=== PATIENT | female | born 1990 | race Asian ===

== ENCOUNTER 2018-02-07 10:56 | Outpatient (RCR) | payer OTHER | END 2018-02-20 13:57 | disposition home or self-care (01) | LOC: WSPT 10:56 | DX: M25.562 Pain in left knee (principal); Z79.1 Long term (current) use of non-steroidal anti-inflammatories (NSAID); Z79.899 Other long term (current) drug therapy; Z72.0 Tobacco use; Z80.3 Family history of malignant neoplasm of breast; Z80.1 Family history of malignant neoplasm of trachea, bronchus and lung; Z82.49 Family history of ischemic heart disease and other diseases of the circulatory system; Z83.3 Family history of diabetes mellitus ==

== ENCOUNTER 2018-06-20 13:39 | Emergency (ER) | payer OTHER ==
[~2018-06-20] VITALS: Ht 177.8 cm; Wt 63.6 kg
[~2018-06-20 13:39] MED LIST: PREDNISONE20 MG PO
[2018-06-20 13:43] VITALS: BP 124/55; TEMP 99.5
[2018-06-20] MEDS ORDERED: ATARAX 25MG25 MG/TAB PO (17:07)
[2018-06-20] MEDS ORDERED: FLEXERIL 1010 MG/TAB PO (17:07)
[2018-06-20 17:24] VITALS: PULSE 70
== END 2018-06-20 17:26 | disposition home or self-care (01) ==
LOC: COL.ER 13:39
DX: M94.0 Chondrocostal junction syndrome [Tietze] (principal); N92.6 Irregular menstruation, unspecified; F41.9 Anxiety disorder, unspecified; M54.5 Low back pain; G89.29 Other chronic pain; F17.210 Nicotine dependence, cigarettes, uncomplicated
CPT/HCPCS: J1885

== ENCOUNTER 2019-10-15 11:24 | Inpatient (IN) | payer MEDICAID ==
[~2019-10-15] VITALS: Ht 177.8 cm; Wt 80.9 kg
[~2019-10-15 11:24] MED LIST changes: +ATARAX 25MG25 MG/TAB PO; +FLEXERIL 1010 MG/TAB PO
[2019-10-16] VITALS: BP 108/58; PULSE 71; TEMP 98.3
--- NOTE | 2019-10-16 19:00 | NUR ---
Ambulatory to unit for cytotech induction, accompanied by significant other. Oriented to room, monitor, plan of care. Questions invited and answered.
[2019-10-16 21:30] LABS: BASO % 0.3 % (0.0-2.0); EOS # 0.1 (0.0-0.7); EOS % 0.8 % (0-4.0); GRAN # 5.5 (1.4-6.5); GRAN % 72.7 % (42.2-75.2); HEMOGLOBIN 11.9 g/dl (12.5-16.0); LYMPH # 1.5 (1.2-3.4); LYMPH % 20.3 % (20.0-51.0); MEAN CELL VOLUME 87 fl (80.0-100.0); MEAN CORPUSCULAR HEMOGLOBIN 28 pg (27.0-31.0); MEAN CORPUSCULAR HGB CONC 32 g/dl (33.0-37.0); MONO # 0.4 (0.1-0.6); MONO % 5.5 % (1.7-9.3); PLATELET COUNT 170 K/mm3 (130-400); RED BLOOD COUNT 4.25 M/mm3 (4.10-5.30); REDCELL DISTRIBUTION WIDTH-CV 13.3 % (11.5-14.5)
[2019-10-16 21:54] LABS: TRICYCLIC ANTIDEPRESS URINE NEGATIVE
[2019-10-16 22:10] VITALS: BP 110/61; PULSE 79
--- NOTE | 2019-10-16 22:10 | NUR ---
IV bolus infused, IV to INT.
[2019-10-16 22:25] VITALS: BP 139/63; PULSE 81
[2019-10-16 22:45] VITALS: BP 121/65; PULSE 81
[2019-10-16 23:00] VITALS: BP 109/59; PULSE 76
--- NOTE | 2019-10-16 23:25 | NUR ---
Vistaril 50mg po.
[2019-10-16 23:57] VITALS: BP 118/69; PULSE 87; TEMP 98.2
[2019-10-17] VITALS (64 sets, daily range): BP systolic 85–142; BP diastolic 47–80; PULSE 64–94; TEMP 97.2–98
[2019-10-17] MEDS ORDERED: PRENATAL TABLET PO (00:05)
--- NOTE | 2019-10-17 02:23 | NUR ---
Sleeping soundly. Awakened for scheduled Cytotech.
--- NOTE | 2019-10-17 16:24 | NUR ---
SW received a social media senior associate consult from OB for the patient due to yes to question 1 suicide screen, EPDS antepartum , positive marijuana UDS at admission, history of drug use and currently attends therapy. The patient is currently in labor. Due to the positive drug screen, SW made a CPS report. Report # [id number]. Once the patient delivers her baby, social media senior associate will meet with the patient.
--- NOTE | 2019-10-17 18:50 | NUR ---
1849- SVE by this RN /+2. Pushing instructions discussed. 1854- Duong removed without complications. 1899- Pushing started. 1904- Dr. Beyer notified of pt's progress with pushing. 1915- Dr. Beyer at the bedside. Pt set up for delivery. Pt continuing to push with contractions. 1924- Dr. Beyer remains at the bedside pushing with the pt. 1933- of viable female . placed on mom's abdomen. Cords clamped and cut. Care of the given to nursery RN at the bedside. 1937- of placenta. Pitocin started at 333ml/hr per order and protocol. Fundus firm with lochia WNL.
--- NOTE | 2019-10-17 23:00 | NUR ---
Pt stand-pivot to the wheelchair without complications and to the bathroom. Pt was able to void. Alyse-care done. Assisted pt back to the wheelchair for transfer to room 208. Pt able to stand-pivot to the bed. Oriented to room, bed and call light within reach. Plan of care reviewed with pt and at the bedside. Both verbalized an understanding and agreed with the plan.
[2019-10-18] VITALS: BP 106/49; PULSE 68; TEMP 98.5
[2019-10-18 04:18] VITALS: BP 103/51; PULSE 74; TEMP 98.1
[2019-10-18 08:20] VITALS: BP 143/88; PULSE 82; TEMP 98
--- NOTE | 2019-10-18 11:13 | NUR ---
SW met with patient in room. SW recieved consult for Sx in system of mother marijuana and baby testing for meth. Staffed with nurse, nurse indicated that mother received medications during the del, that may have cause test for baby. Patient reports that she and the father of the baby Randal Bravo are residing together at [address] [place] [address] in [facility]. Patient's phone contact is [phone]. Patient reports that she has a twin sister that she relys on for supports Carli Mcnally . 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 . Patient reports it has been two months since face to face consult due to pandemic and has not seen her therapist. Patient reports that she is off of her medications for anxiety and depression but is willing to start them again. Patient reports that she is seeking a primary for the baby. Patient denies being in any harms way for relapse. Patient reports that they have supplies and are prepared for baby. No additonal concerns. SW gave resource packet for baby and self, gave clinician referral, and pediatric referral.
[2019-10-18 12:11] VITALS: BP 93/57; PULSE 78; TEMP 98.4
[2019-10-18 16:30] VITALS: BP 106/53; PULSE 82; TEMP 98.3
[2019-10-18 20:00] VITALS: BP 98/60; PULSE 100; TEMP 97.9
[2019-10-19 04:00] VITALS: BP 108/70; PULSE 98; TEMP 98.3
[2019-10-19 07:43] VITALS: BP 101/61; PULSE 83; TEMP 98.1
[2019-10-19] MEDS ORDERED: PERCOCET 325 MG1 TA2 PO (10:56)
[2019-10-19] MEDS ORDERED: IBU600 MG PO (10:56)
--- NOTE | 2019-10-21 12:28 | NUR ---
SERA contacted Dr. [facility] on 10/19 regarding the patient's baby positive UDS test. He was to contact Dr. Aden to ask her regarging this information. On 10/[address] Aden's office left message. On 10/20, Kena Fisher from [facility] contacted SERA regarding CPS # [id number] for the patient's baby. Kena reports she will submit the report for investigation due to the patient's baby testing positive. SERA informed Kena ZAMORA awaiting response from Dr. Aden. SERA to contact Kena as soon as I have a response regaring positive UDS. Kena Fisher ([phone]).
--- NOTE | 2019-10-21 13:33 | NUR ---
Dr. Aden contacted SERA. Dr. Aden reports the patient received ephedrine during labor and was unaware if that drug would cause a positive for methamphetamines and she reports the sample could not be taken for further analysis. SERA awaiting cord blood. SERA contacted Kena with [facility] to give her the above information.
--- NOTE | 2019-10-21 15:27 | NUR ---
magazine worker spoke with Isabelle, [facility] [phone], and advised of positive test results and mental health/history of substance abuse. Will send information on cord blood once it is received. Isabelle states she will make contact with patient.
== END 2019-10-19 13:50 | disposition home or self-care (01) | DRG 807 ==
LOC: OB 10-16 11:24 → LDR 10-16 21:00 → OB 10-17 23:22
PROVIDERS: ADMIT Obstetrics & Gynecology
PROC: 10E0XZZ Delivery of Products of Conception, External Approach (ICD-10-PCS; principal; 2019-10-17)
PROC: 0KQM0ZZ Repair Perineum Muscle, Open Approach (ICD-10-PCS; 2019-10-17)
PROC: 10907ZC Drainage of Amniotic Fluid, Therapeutic from Products of Conception, Via Natural or Artificial Opening (ICD-10-PCS; 2019-10-17)
PROC: 3E0P7GC Introduction of Other Therapeutic Substance into Female Reproductive, Via Natural or Artificial Opening (ICD-10-PCS; 2019-10-17)
DX: O99.323 Drug use complicating pregnancy, third trimester (principal); Z37.0 Single live birth; F12.90 Cannabis use, unspecified, uncomplicated; O99.344 Other mental disorders complicating childbirth; F32.9 Major depressive disorder, single episode, unspecified; F41.9 Anxiety disorder, unspecified; O70.1 Second degree perineal laceration during delivery; Z3A.39 39 weeks gestation of pregnancy
CPT/HCPCS: J2405; J2590; J2795; J7120

== ENCOUNTER 2020-08-09 11:25 | Emergency (ER) | payer MEDICAID ==
[~2020-08-09] VITALS: Ht 177.8 cm; Wt 63.6 kg
[~2020-08-09 11:25] MED LIST changes: +IBU600 MG PO; +PERCOCET 325 MG1 TA2 PO; +PRENATAL TABLET PO
[2020-08-09 12:29] VITALS: BP 113/73; PULSE 69; TEMP 98.7
== END 2020-08-09 12:31 | disposition home or self-care (01) ==
LOC: COL.ER 11:25
DX: L72.3 Sebaceous cyst (principal)

== ENCOUNTER → 2021-04-26 | Emergency (ER) | payer MEDICAID ==
[~2021-04-26] VITALS: Ht 175.3 cm; Wt 65.9 kg
[2021-04-26 12:19] VITALS: BP 119/81; TEMP 98.3
[2021-04-26 13:48] VITALS: PULSE 90
== END ==
LOC: COL.ER 12:00
DX: S60.031A Contusion of right middle finger without damage to nail, initial encounter (principal); W10.9XXA Fall (on) (from) unspecified stairs and steps, initial encounter

== ENCOUNTER → 2021-10-28 | Outpatient (CLI) | payer MEDICAID | LOC: COL.CARD 08:00 | DX: R00.2 Palpitations (principal) ==

== ENCOUNTER 2023-09-13 02:00 | Emergency (ER) | payer OTHER ==
[~2023-09-13] VITALS: Ht 177.8 cm; Wt 59.1 kg
[~2023-09-13 02:00] MED LIST changes: +BUSPIRONE HCL7.5 MG PO; +MIRTAZAPINE7.5 MG PO
[2023-09-13] MEDS ORDERED: Ketorolac 30 MG/ML VIAL IM ONE (02:30)
[2023-09-13] MEDS ORDERED: dexAMETHasone 10 MG/ML VIAL IM ONE (02:30)
[2023-09-13] MEDS ORDERED: TORADOL 10MG TA10 MG PO (03:13)
[2023-09-13] MEDS ORDERED: MEDROL 4MG DOSPA4 MG PO (03:13)
[2023-09-13] MEDS ORDERED: FLEXERIL 1010 MG/TAB PO (03:13)
[2023-09-13 03:18] VITALS: BP 115/79; PULSE 63; TEMP 98.3
== END 2023-09-13 03:19 | disposition home or self-care (01) ==
LOC: COL.ER 02:00
DX: G57.01 Lesion of sciatic nerve, right lower limb (principal)
CPT/HCPCS: J1100; J1885; J2360